=== PATIENT | female | born 1970 ===

== ENCOUNTER 2018-07-17 19:09 | Emergency (ER) | payer BC ==
[2018-07-17] MEDS ORDERED: Levofloxacin TAB* 500 MG PO ONE (21:39)
[2018-07-17 21:50] VITALS: BP 140/95
--- NOTE | 2018-07-17 21:50 | ED ---
Respiratory - HPI Summary HPI Summary: Ms. Montes presented with a couple weeks of coughing and fevers. She is worried that she is getting pneumonia again. She is not C/O SOB of CP. - History of Current Complaint Chief Complaint: UCRespiratory Stated Complaint: URI Time Seen by Provider: 07/17/18 20:19 Hx Obtained From: Patient Onset/Duration: Gradual Onset Timing: Constant Initial Severity: Mild Current Severity: Moderate Pain Intensity: 10 Sputum Amount: Small Aggravating Factor(s): Nothing Alleviating Factor(s): Nothing Associated Signs and Symptoms: Fever - Allergy/Home Medications Allergies/Adverse Reactions: Allergies Allergy/AdvReac Type Severity Reaction Status Date / Time cefuroxime [From Ceftin] Allergy Difficulty Verified 07/17/18 19:39 Breathing/Wheezing erythromycin base Allergy Difficulty Verified 07/17/18 19:39 Breathing/Wheezing Penicillins Allergy Rash Verified 07/17/18 19:39 Sulfa (Sulfonamide Allergy Swelling Verified 07/17/18 19:39 Antibiotics) Of Face,Lips,& Throat PMH/Surg Hx/FS Hx/Imm Hx Previously Healthy: Yes Endocrine/Hematology History: Denies: Hx Diabetes, Hx Thyroid Disease Cardiovascular History: Denies: Hx Hypertension Respiratory History: Denies: Hx Asthma, Hx Chronic Obstructive Pulmonary Disease (COPD) GI History: Denies: Hx Ulcer - Surgical History Surgery Procedure, Year, and Place: 1992 tubaligation. EXPLORATORY LAP Infectious Disease History: No Infectious Disease History: Denies: Hx Hepatitis, Hx Human Immunodeficiency Virus (HIV), Traveled Outside the [place] in Last 30 Days - Social History Alcohol Use: Rare Substance Use Type: Reports: None Smoking Status (MU): Light Every Day Tobacco Smoker Type: Cigarettes Amount Used/How Often: 1/2 PPD Have You Smoked in the Last Year: Yes Review of Systems Constitutional: Negative ENT: Negative Cardiovascular: Negative Positive: Cough Gastrointestinal: Negative Genitourinary: Negative Musculoskeletal: Negative Skin: Negative Neurological: Negative Psychological: Normal All Other Systems Reviewed And Are Negative: Yes Physical Exam Triage Information Reviewed: Yes Vital Signs On Initial Exam: Initial Vitals Temp Pulse Resp BP Pulse Ox 98.8 F 70 20 153/96 100 07/17/18 19:33 07/17/18 19:33 07/17/18 19:33 07/17/18 19:33 07/17/18 19:33 Vital Signs Reviewed: Yes Appearance: Positive: Well-Appearing Skin: Positive: Warm, Skin Color Reflects Adequate Perfusion ENT: Positive: Normal ENT inspection Respiratory/Lung Sounds: Positive: Clear to Auscultation, Breath Sounds Present Cardiovascular: Positive: Normal, RRR Abdomen Description: Positive: Nontender Musculoskeletal: Positive: Normal Neurological: Positive: Normal Diagnostics - Vital Signs Vital Signs Temp Pulse Resp BP Pulse Ox 07/17/18 19:33 98.8 F 70 20 153/96 100 - Laboratory Lab Statement: Any lab studies that have been ordered have been reviewed, and results considered in the medical decision making process. - Radiology CXR Radiology Interpretation Completed By: ED Physician - No Acute Process Disposition - Course Course Of Treatment: She is a smoker and likely has a bronchitis that is secondary to a Viral URI. I will treat her with antibiotics. She is allergic to multiple ones. - Diagnoses Provider Diagnoses: Bronchitis Discharge - Sign-Out/Discharge Documenting (check all that apply): Patient Departure All imaging exams completed and their final reports reviewed: Yes - Discharge Plan Condition: Stable Disposition: HOME Prescriptions: Levofloxacin TAB* [Levaquin TAB*] 750 mg PO DAILY #10 tab Patient Education Materials: Acute Bronchitis (ED) Referrals: No Primary Care Phys,NOPCP [Primary Care Provider] - [facility] [Outside] - Billing Disposition and Condition Condition: STABLE Disposition: Home
--- NOTE | 2018-07-18 11:28 | UC ---
- Progress Note Progress Note: 07/18/2018 Pt seen yeasterday and Rx Levofloxacin PO for Acute Bronchitis. Pt call back this morning stating she can't afford the Levofloxacin PO. she request a change of antibiotic. Pt allergic to Sulfa, PCN and erythromycin and ceftin PO. A Rx for Doxycycline PO was sent to pharmacy. Nurse Hermelinda called back patient and notified her a new prescriptions was sent to pharmacy. Patricia Perry PA-C Course/Dx - Diagnoses Provider Diagnoses: Bronchitis Discharge - Sign-Out/Discharge Documenting (check all that apply): Post-Discharge Follow Up All imaging exams completed and their final reports reviewed: Yes - Discharge Plan Condition: Stable Disposition: HOME Prescriptions: DOXYcycline CAP(*) [DOXYcycline 100MG CAP(*)] 100 mg PO BID #20 cap Patient Education Materials: Acute Bronchitis (ED) Referrals: [facility] [Outside] No Primary Care Phys,NOPCP [Primary Care Provider] - - Billing Disposition and Condition Condition: STABLE Disposition: Home
== END 2018-07-17 21:54 | disposition home or self-care (01) ==
LOC: UCEAST 19:09
DX: J40 Bronchitis, not specified as acute or chronic (principal); F17.210 Nicotine dependence, cigarettes, uncomplicated; Z88.2 Allergy status to sulfonamides; Z88.0 Allergy status to penicillin; Z88.3 Allergy status to other anti-infective agents
CPT/HCPCS: 71046; 99202; G0463